=== PATIENT | male | born 1950 | race Caucasian/White ===

== ENCOUNTER 2016-12-03 19:57 | Emergency (ER) | payer OTHER ==
[2016-12-03 20:00] VITALS: O2SAT 100
[2016-12-03] MEDS ORDERED: ONDANSETRON HCL 4 MG/2 ML VIAL ONE (20:05)
[2016-12-03] MEDS ORDERED: MORPHINE SULFATE 8 MG/ML INJ ONE (20:05)
[2016-12-03] MEDS ORDERED: ceFAZolin 2 GM PREMIX 50 ML IV STA (20:08)
[2016-12-03] MEDS ORDERED: DIPHTH/TETANUS/ACEL PERTUSSIS (BOOSTER) 0.5 ML VIAL/PFS IM ONE (20:08)
[2016-12-03] MEDS ORDERED: SODIUM CHLOR 0.9% 1000 ML INJ 1,000 ML IV ONE (20:15)
[2016-12-03 20:23] LABS: AUTOMATED NEUTROPHIL # 15.4 TH/MM3 (1.8-7.7); BASOPHIL # 0.1 TH/MM3 (0-0.2); BASOPHIL % 0.3 % (0.0-2.0); EOSINOPHIL % 0.2 % (0.0-4.0); HEMATOCRIT 47.5 % (39.0-51.0); HEMO FLAGS DIFF FINAL; LYMPH % 4.7 % (9.0-44.0); LYMPHOCYTE # 0.8 TH/MM3 (1.0-4.8); MEAN CELL VOLUME 94.5 FL (80.0-100.0); MEAN CORPUSCULAR HEMOGLOBIN 32.1 PG (27.0-34.0); MONO % 4.8 % (0.0-8.0); PLATELET COUNT 170 TH/MM3 (150-450); RED BLOOD COUNT 5.03 MIL/MM3 (4.50-5.90); RED CELL DISTRIBUTION WIDTH 14.9 % (11.6-17.2); WHITE BLOOD COUNT 17.1 TH/MM3 (4.0-11.0)
--- NOTE | 2016-12-03 20:23 | PD ---
HPI Chief Complaint: Trauma (Alert) Time Seen by Provider: 19:59 Travel History International Travel<30 days: No Contact w/Intl Traveler<30days: No Traveled to known affect area: No History of Present Illness HPI The patient is 66 year old male who presents to the [facility] emergency department with a history of being brought in as a trauma alert after he arrived by private vehicle at [facility] emergency department after a fall off of a roof. Initial evaluation revealed criteria for a trauma alert, therefore the patient was backboarded, C-spine immobilization provided and the patient was transported to this facility. The patient was called as a trauma alert prior to arrival and Dr. Valle, the trauma surgeon was notified at 1910 by me. He was available in the trauma bay when the patient arrived. The patient reports that he was up on the roof cleaning it. He reports that she has a double roof on his barn, 28 feet off the ground. He reports that he slipped and fell off the 28 foot roof and then attempted to catch himself when he was on the 11th foot roof with his left hand. He continued to slide and fell 11 feet to the ground. He denies hitting his head or losing consciousness. He reports that he landed on his buttock area. He reports having some low back pain. He reports having right third digit pain with notable deformity, right foot pain with notable ecchymosis over the dorsum of the foot, and left great toe pain. Otherwise, the patient denies having any chest pain, chest pressure, shortness of breath, abdominal pain, headache, neck pain, or loss of consciousness. Tetanus is unsure when his tetanus was last updated. [facility] Past Medical History Narrative Medical The patient's past medical history is reportedly significant for hypertension, history of skin cancer. Past Surgical History Narrative Surgical The patient has a history of skin cancer resection. Social History Alcohol Use: Yes (occasional) Tobacco Use: No Substance Use: No Allergies-Medications (Allergen,Severity, Reaction): Coded Allergies: No Known Allergies (Unverified , 12/03/16) Comments He denies any allergies to medicines. Narrative Medication He reports that he takes lisinopril 10 mg by mouth daily. Review of Systems Except as stated in HPI: all other systems reviewed are Neg General / Constitutional: No: Fever Eyes: No: Visual changes HENT: No: Headaches, Neck Stiffness, Neck Pain Cardiovascular: No: Chest Pain or Discomfort Respiratory: No: Shortness of Breath Gastrointestinal: No: Nausea, Vomiting, Diarrhea, Abdominal Pain Genitourinary: No: Dysuria, Flank Pain Musculoskeletal: Positive: Myalgias, Arthralgias, Limited ROM, Edema, Pain Skin: No Rash Neurologic: No: Weakness, Focal Abnormalities, Change in Mentation, Sensory Disturbance Psychiatric: No: Depression Endocrine: No: Polydipsia Hematologic/Lymphatic: No: Easy Bruising Physical Exam Narrative General: The patient is a well-developed well-nourished male in no acute distress. The patient is brought in on a back board in full c-spine immobilization by emergency services. Head and Neck exam: Head is normocephalic atraumatic. No facial bone tenderness or increased facial bone mobility noted on palpation. Eyes: EOMI, pupils are equal round and reactive to light. Nose: Midline septum with pink mucous membranes Mouth: Dentition unremarkable. Moist mucus membranes. Posterior oropharynx is not erythematous. No tonsillar hypertrophy. Uvula midline. Airway patent. Neck: The patient is immobilized in a cervical collar. No tracheal deviation. The trachea appears midline. The patient has no obvious distracting injuries. The trauma surgeon remove the patient's cervical collar and examined his posterior neck. The patient had no spinous process tenderness to palpation, no step-off or crepitus. The patient on active range of motion had no pain with flexion and extension or rotation of his head. The patient's cervical collar was removed and his cervical spine was cleared by the trauma surgeon. Cardiovascular: Regular rate and rhythm without murmurs, gallops, or rubs. Lungs: Clear to auscultation bilaterally. No wheezes, rhonchi, or rales. No chest wall tenderness to palpation. No erythema or ecchymosis noted. No crepitus , step off, or flail segment noted. Abdomen: Soft, without tenderness to palpation in all 4 quadrants of the abdomen. No guarding, rebound, or rigidity. Negative Brandon sign. Extremities: No clubbing, cyanosis, or edema. 2+ pulses in all 4 extremities. No extremity tenderness or deformity noted on palpation or passive/ active range of motion, except in the areas of interest, the right third digit, the patient has deformity at the PIP joint with flexion noted. The patient reports that he is unable to extend his finger there is ecchymosis developing over the joint. There is tenderness on palpation. The patient has intact sensation over the digit. The patient also has tenderness on palpation along the dorsum of the right foot with ecchymosis and abrasion noted. There is no crepitus or step-off. The patient has an abrasion over the medial aspect of the right ankle with some swelling noted. There is no deformity, crepitus, or step-off. The patient is able to move his toes and has intact sensation over his legs and full range of motion. The patient additionally reports having tenderness of the left great toe. There is no obvious deformity, step-off or crepitus. Back: No spinous process tenderness to palpation. No costovertebral angle tenderness to palpation. No erythema or ecchymosis. Neurologic Exam: Cranial nerves 2-12 were intact on exam. Strength is 5/5 in all 4 extremities. No sensory deficits noted. Skin Exam: The patient has an 8 cm medial laceration to the left thigh without any active bleeding. This is through the skin and down into the subcutaneous tissue. Some fatty tissue is being extruded from the wound. A bandage was applied prior to arrival. Data Data Last Documented VS Vital Signs Date Time Temp Pulse Resp B/P Pulse Ox O2 Delivery O2 Flow Rate FiO2 12/03/16 21:10 84 16 142/78 98 Room Air 12/03/16 20:00 21 Orders I-Stat Profile (12/03/16 19:59) I-Stat Creatinine (12/03/16 19:59) Complete Blood Count With Diff (12/03/16 19:59) Prothrombin Time / Inr (Pt) (12/03/16 19:59) Act Partial Throm Time (Ptt) (12/03/16 19:59) Type And Screen (12/03/16 19:59) Fibrinogen (12/03/16 19:59) Urinalysis - C+S If Indicated (12/03/16 19:59) Chest, Single Ap (12/03/16 19:59) Pelvis, Ap Only (Routine) (12/03/16 19:59) Ct Abd/Pel W Iv Contrast(Rout) (12/03/16 19:59) Ct Thorax/ Chest W Iv Contrast (12/03/16 19:59) Ct Thor Spine W/O Contrast (12/03/16 19:59) Ct Lumb Spine W/O Contrast (12/03/16 19:59) Iv Access Insert/Monitor (12/03/16 19:59) Ecg Monitoring (12/03/16 19:59) Oximetry (12/03/16 19:59) Oxygen Administration (12/03/16 19:59) Morphine Inj (Morphine Inj) (12/03/16 20:05) Ondansetron Inj (Zofran Inj) (12/03/16 20:05) Cefazolin 2 Gm Premix (Ancef 2 Gm Premix (12/03/16 20:08) Hbqj-Xqp-Nabvcj (Booster) Inj (Boostrix (12/03/16 20:08) Sodium Chlor 0.9% 1000 Ml Inj (Ns 1000 M (12/03/16 20:15) Finger (Tce2zgm) (12/03/16 20:12) Foot, Complete (Mmy1yxz) (12/03/16 20:12) Toe (Min 2vws) (12/03/16 20:12) Hand, Limited (2vws) (12/03/16 ) Ankle, Limited (Ap&Lat) (12/03/16 ) Iohexol 350 Inj (Omnipaque 350 Inj) (12/03/16 20:26) Lidocai-Epi 1%-1:100,000 Inj (Xylocaine- (12/03/16 21:00) Wound Care (12/03/16 20:46) Lidocaine 2% Inj (Xylocaine 2% Inj) (12/03/16 21:15) Ice/Cold Pack (12/03/16 22:05) Splint Or Brace Apply/Monitor (12/03/16 22:05) Labs Laboratory Tests Test 12/03/16 19:58 White Blood Count 17.1 TH/MM3 Red Blood Count 5.03 MIL/MM3 Hemoglobin 16.2 GM/DL Bedside Hemoglobin 16.7 G/DL Hematocrit 47.5 % Bedside Hematocrit 49.0 % Mean Corpuscular Volume 94.5 FL Mean Corpuscular Hemoglobin 32.1 PG Mean Corpuscular Hemoglobin 34.0 % Concent Red Cell Distribution Width 14.9 % Platelet Count 170 TH/MM3 Mean Platelet Volume 10.5 FL Neutrophils (%) (Auto) 90.0 % Lymphocytes (%) (Auto) 4.7 % Monocytes (%) (Auto) 4.8 % Eosinophils (%) (Auto) 0.2 % Basophils (%) (Auto) 0.3 % Neutrophils # (Auto) 15.4 TH/MM3 Lymphocytes # (Auto) 0.8 TH/MM3 Monocytes # (Auto) 0.8 TH/MM3 Eosinophils # (Auto) 0.0 TH/MM3 Basophils # (Auto) 0.1 TH/MM3 CBC Comment DIFF FINAL Differential Comment Prothrombin Time 10.9 SEC Prothromb Time International 1.0 RATIO Ratio Activated Partial 21.4 SEC Thromboplast Time Fibrinogen 233 mg/dL Bedside Sodium 141 MMOL/L Bedside Potassium 4.3 MMOL/L Bedside Chloride 106 MMOL/L Bedside Blood Urea Nitrogen 24 MG/DL Bedside Creatinine 1.1 MG/DL Bedside Glucose 117 MG/DL Blood Type A POSITIVE Antibody Screen NEGATIVE MDM Medical Screen Exam Complete: Yes Emergency Medical Condition: Yes Medical Record Reviewed: Yes Differential Diagnosis Intrathoracic trauma, versus intra-abdominal trauma, versus pelvic injury, versus C-spine injury, versus L-spine injury, versus extremity fractures, versus dislocation, versus contusion and abrasion. Narrative Course During the course of the patients emergency department visit, the patients history, examination, and differential diagnosis were reviewed with the patient. The patient had IV access obtained and blood work sent for analysis. The patient had large-bore IVs placed in bilateral upper extremities. IV fluids were administered prior to arrival. The patient's blood pressure on arrival is in the 170s systolic and the patient has no signs of bleeding, therefore the patient's further fluid resuscitation IV was held. A chest x-ray , pelvic x-ray, right ankle, right foot, left great toe, right hand, right third digit x-ray were ordered. An i-STAT with creatinine was ordered. Dr. Valle the trauma surgeon was available at the patient's side to assist with care. The patient was provided Ancef 2 g IV, tetanus was updated. The patients laboratory studies were reviewed and remarkable for a white count of 17.1, hemoglobin 16.2, platelets 170 with 90.0 neutrophils lymphocytes 4.7, i -STAT shows a sodium of 141, potassium 4.3, chloride 106, BUN 24, creatinine 1.1 , glucose 117. PT PTT are unremarkable, fibrinogen 233. Radiology studies were reviewed and remarkable for a CT scan of the thorax, abdomen and pelvis showed no acute abnormality. CT scan of the T-spine showed no acute abnormality. CT scan of the lumbar spine shows no fracture or subluxation of the lumbar spine, degenerative changes at L4-L5 and L5-S1 mainly appearing chronic although there is an age indeterminate small central to left paracentral disc protrusion at L4-L5 with associated mild spinal left lateral recess narrowing. There is mild bilateral foraminal stenosis at L4-L5 and moderate to severe bilateral foraminal stenosis at L5-S1. Chest x-ray and pelvic x-ray were unremarkable, right foot x-ray, left great toe x-ray, right ankle x-ray showed no acute bony abnormality. Right hand x-ray revealed a dislocation of the PIP joint. This was relocated and post reduction film reveals interim reduction of the previously seen dislocation, potential tiny dorsal medial fracture fragment 1 mm noted seen dorsal medial to the joint. No large fracture noted. The patient was placed in a finger splint. The patient was instructed regarding the importance of following up with a hand surgeon for reexamination. The patient's findings were discussed with the trauma surgeon. He felt that the patient could be discharged home. A physician billing and accounting staff assistant was consultative regarding wound repair of the left medial thigh laceration. This was irrigated and repaired. A separate dictation will be done by this PA. The patient is resting comfortably and feels better, is alert and in no distress. The patients results and examination findings were discussed with the patient. The repeat examination is unremarkable and benign. The history, exam, diagnostic testing, and current condition do not suggest any significant pathology to warrant further testing, continued ED treatment, admission, or surgical evaluation at this point. The vital signs have been stable. The patient does not have uncontrollable pain, intractable vomiting, or other significant symptoms. The patient's condition is stable and appropriate for discharge. The patient will pursue further outpatient evaluation with a primary care physician or other designated or consulting physician as indicated in the discharge instructions. The patient expressed understanding and was agreeable with this plan. Procedures Procedure Narrative Close reduction right third PIP joint dislocation: While preparing the finger by cleaning it, I explained to the patient that I would be doing a digital block for his comfort for the procedure. The patient reports that he is fearful of needles and prefers that I do the procedure without local anesthesia. The patient's right hand was stabilized on a bedside table and I gently pulled the distal third digit while stabilizing the proximal aspect of the digit. The patient's finger relocated to the anatomic position. A postreduction right third digit x-ray has been ordered. The patient will be placed in a finger splint. Trauma Alert - Level One Trauma Alert Level One: Full trauma team activate, Patient evaluated, Trauma surgeon summoned Time Surgeon Summoned: 19:10 (Surgeon asked to come in) Diagnosis Diagnosis: Primary Impression: Fall Qualified Code: W19.XXXA - Fall, initial encounter Additional Impressions: Closed traumatic PIP dislocation Qualified Code: S63.289A - Closed traumatic PIP dislocation, initial encounter Laceration of left leg Qualified Code: S81.812A - Laceration of left leg, initial encounter Referrals: Hand Surgeon 3 days Primary Care Physician 2 days Patient Instructions: Contusion in Adults (ED), Finger Dislocation (ED), General Instructions, Laceration (ED) Med/Other Pt SpecificInfo: Prescription(s) given Scripts Cyclobenzaprine (Flexeril)5 Mg Tab5 Mg PO TID PRN (SPASM) #15 TAB Ref 0 Prov:Pastora Junior MD 12/03/16 Hydrocodone-Acetaminophen (Lortab)5-325 Mg Tab1 Tab PO Q6H PRN (PAIN) #12 TAB Ref 0 Prov:Pastora Junior MD 12/03/16 Disposition: 01 DISCHARGE HOME Condition: Stable Pastora Junior MD Dec 03, 2016 20:23
[2016-12-03] MEDS ORDERED: IOHEXOL 350 MG/ML 10 ML VIAL (for RAD DIAG) IV ONE (20:26)
--- NOTE | 2016-12-03 20:27 | RADRPT ---
EXAM DATE/TIME: 12/03/2016 19:53 [facility] COMPARISON: No previous studies available for comparison. INDICATIONS : Trauma alert. Fall. MEDICAL HISTORY : None. SURGICAL HISTORY : None. ENCOUNTER: Initial ACUITY: 1 day PAIN SCORE: Non-responsive. LOCATION: Bilateral chest FINDINGS: A single view of the chest demonstrates the lungs to be symmetrically aerated without evidence of mas s, infiltrate or effusion. The cardiomediastinal contours are unremarkable. Osseous structures are intact. CONCLUSION: No evidence of acute cardiopulmonary disease. Bob Deleon MD on December 03, 2016 at 20:25 Board Certified Radiologist. This report was verified electronically.
[2016-12-03 20:28] LABS: I-STAT POTASSIUM 4.3 MMOL/L (3.5-4.9)
--- NOTE | 2016-12-03 20:28 | RADRPT ---
EXAM DATE/TIME: 12/03/2016 19:53 [facility] COMPARISON: No previous studies available for comparison. INDICATIONS : Trauma alert. Fall. Medial right ankle abrasion. MEDICAL HISTORY : None. SURGICAL HISTORY : None. ENCOUNTER: Initial ACUITY: 1 day PAIN SCORE: Non-responsive. LOCATION: Right ankle FINDINGS: Two view examination was performed of the right ankle. The bony structures are in normal alignment. No evidence of fracture, dislocation, or soft tissue swelling. No radiopaque foreign bodies are see n. Bony mineralization is normal. CONCLUSION: No ankle fracture. Bob Deleon MD on December 03, 2016 at 20:27 Board Certified Radiologist. This report was verified electronically.
--- NOTE | 2016-12-03 20:28 | RADRPT ---
EXAM DATE/TIME: 12/03/2016 19:53 [facility] COMPARISON: No previous studies available for comparison. INDICATIONS : Trauma alert. Fall. MEDICAL HISTORY : None. SURGICAL HISTORY : None. ENCOUNTER: Initial ACUITY: 1 day PAIN SCORE: Non-responsive. LOCATION: Bilateral pelvis FINDINGS: A single frontal view of the pelvis demonstrates no evidence of fracture. The bony pelvic ring is in tact. Bony mineralization is normal. The soft tissues are intact. CONCLUSION: Intact pelvis. Bob Deleon MD on December 03, 2016 at 20:26 Board Certified Radiologist. This report was verified electronically.
[2016-12-03 20:34] LABS: APTT (PATIENT) 21.4 SEC (24.3-30.1); PROTHROMBIN TIME - PATIENT 10.9 SEC (9.8-11.6)
--- NOTE | 2016-12-03 20:37 | RADRPT ---
EXAM DATE/TIME: 12/03/2016 19:53 [facility] COMPARISON: No previous studies available for comparison. INDICATIONS : Trauma alert. Fall. Right hand pain and unable to extend third digit. MEDICAL HISTORY : None. SURGICAL HISTORY : None. ENCOUNTER: Initial ACUITY: 1 day PAIN SCORE: Non-responsive. LOCATION: Right hand FINDINGS: Volar dislocation with hyperflexion seen at the proximal interphalangeal joint of the long finger. No definite fracture. CONCLUSION: Volar dislocated long finger proximal interphalangeal joint. Bob Deleon MD on December 03, 2016 at 20:35 Board Certified Radiologist. This report was verified electronically.
--- NOTE | 2016-12-03 20:38 | RADRPT ---
EXAM DATE/TIME: 12/03/2016 20:16 [facility] COMPARISON: No previous studies available for comparison. INDICATIONS : Trauma. IV CONTRAST: 98 cc Omnipaque 350 (iohexol) IV ; Cumulative dose for multiple exams. ORAL CONTRAST: No oral contrast ingested. RADIATION DOSE: 15.57 CTDIvol (mGy) MEDICAL HISTORY : Non-responsive. SURGICAL HISTORY : Non-responsive. ENCOUNTER: Initial ACUITY: 1 day PAIN SCALE: Non-responsive LOCATION: Bilateral lower quadrant TECHNIQUE: Volumetric scanning of the abdomen and pelvis was performed. Using automated exposure control and ad justment of the mA and/or kV according to patient size, radiation dose was kept as low as reasonably achievable to obtain optimal diagnostic quality images. FINDINGS: LOWER LUNGS: The visualized lower lungs are clear. LIVER: Homogeneous density without lesion. There is no dilation of the biliary tree. No calcified gallston es. SPLEEN: Normal size without lesion. PANCREAS: Within normal limits. KIDNEYS: Kidneys are intact. There is a 3.8 cm upper pole cyst on the right. ADRENAL GLANDS: Within normal limits. VASCULAR: There is no aortic aneurysm. BOWEL/MESENTERY: The stomach, small bowel, and colon demonstrate no acute abnormality. There is no free intraperitone al air or fluid. ABDOMINAL WALL: Within normal limits. RETROPERITONEUM: There is no lymphadenopathy. BLADDER: No wall thickening or mass. REPRODUCTIVE: Within normal limits. INGUINAL: There is no lymphadenopathy or hernia. MUSCULOSKELETAL: Within normal limits for patient age. CONCLUSION: No visceral organ injury or other acute abnormality. Incidentally seen benign-appearing right renal c yst. Bob Deleon MD on December 03, 2016 at 20:37 Board Certified Radiologist. This report was verified electronically.
--- NOTE | 2016-12-03 20:40 | RADRPT ---
EXAM DATE/TIME: 12/03/2016 20:16 [facility] COMPARISON: No previous studies available for comparison. INDICATIONS : Trauma. IV CONTRAST: 98 cc Omnipaque 350 (iohexol) IV ; Cumulative dose for multiple exams. RADIATION DOSE: 15.57 CTDIvol (mGy) MEDICAL HISTORY : Non-responsive. SURGICAL HISTORY : Non-responsive. ENCOUNTER: Initial ACUITY: 1 day PAIN SCALE: Non-responsive LOCATION: chest TECHNIQUE: Volumetric scanning of the chest was performed. Using automated exposure control and adjustment of t he mA and/or kV according to patient size, radiation dose was kept as low as reasonably achievable to obtain optimal diagnostic quality images. FINDINGS: LUNGS: There is no consolidation or pneumothorax. No concerning pulmonary nodule is visualized. PLEURA: There is no pleural thickening or pleural effusion. MEDIASTINUM: The heart and great vessels demonstrate no acute abnormality. There is no mediastinal or hilar lymph adenopathy. AXILLAE: Within normal limits. No lymphadenopathy. SKELETAL: Within normal limits for patient age. MISCELLANEOUS: The visualized upper abdominal organs demonstrate no acute abnormality. CONCLUSION: Negative. No acute thoracic injury demonstrated. Bob Deleon MD on December 03, 2016 at 20:38 Board Certified Radiologist. This report was verified electronically.
--- NOTE | 2016-12-03 20:46 | RADRPT ---
EXAM DATE/TIME: 12/03/2016 20:16 [facility] COMPARISON: No previous studies available for comparison. INDICATIONS : Trauma. RADIATION DOSE: 15.57 CTDIvol (mGy) ; Reconstructed from previous dataset MEDICAL HISTORY : Non-responsive. SURGICAL HISTORY : Non-responsive. ENCOUNTER: Initial ACUITY: 1 day PAIN SCALE: Non-responsive LOCATION: Paraspinal TECHNIQUE: Volumetric scanning of the thoracic spine was performed. Multiplanar reconstructions in the sagittal , coronal and oblique axial planes were performed. Using automated exposure control and adjustment o f the mA and/or kV according to patient size, radiation dose was kept as low as reasonably achievable to obtain optimal diagnostic quality images. FINDINGS: There is mild dextroconvex curvature. No subluxation. Vertebral bodies have normal height. No cortica l break or trabecular disruption seen. Chronic degenerative disc disease seen in the lower cervical s pine at C6/C7. T1-T2: Normal. T2-T3: The thecal sac has a normal diameter. No evidence of disc bulge or protrusion. T3-T4: The thecal sac has a normal diameter. No evidence of disc bulge or protrusion. T4-T5: The thecal sac has a normal diameter. No evidence of disc bulge or protrusion. T5-T6: The thecal sac has a normal diameter. No evidence of disc bulge or protrusion. T6-T7: The thecal sac has a normal diameter. No evidence of disc bulge or protrusion. T7-T8: The thecal sac has a normal diameter. No evidence of disc bulge or protrusion. T8-T9: The thecal sac has a normal diameter. No evidence of disc bulge or protrusion. T9-T10: The thecal sac has a normal diameter. No evidence of disc bulge or protrusion. T10-T11: The thecal sac has a normal diameter. No evidence of disc bulge or protrusion. T11-T12: The thecal sac has a normal diameter. No evidence of disc bulge or protrusion. T12-L1: The thecal sac has a normal diameter. No evidence of disc bulge or protrusion. CONCLUSION: Intact thoracic spine. Bob Deleon MD on December 03, 2016 at 20:44 Board Certified Radiologist. This report was verified electronically.
--- NOTE | 2016-12-03 20:51 | RADRPT ---
EXAM DATE/TIME: 12/03/2016 20:16 [facility] COMPARISON: No previous studies available for comparison. INDICATIONS : Trauma. RADIATION DOSE: 15.57 CTDIvol (mGy) ; Reconstructed from previous dataset MEDICAL HISTORY : Non-responsive. SURGICAL HISTORY : Non-responsive. ENCOUNTER: Initial ACUITY: 1 day PAIN SCALE: Non-responsive LOCATION: Paraspinal TECHNIQUE: Volumetric scanning of the lumbar spine was performed. Multiplanar reconstructions in the sagittal, coronal and oblique axial planes were performed. Using automated exposure control and adjustment of the mA and/or kV according to patient size, radiation dose was kept as low as reasonably achievable t o obtain optimal diagnostic quality images. FINDINGS: VERTEBRAE: Normal vertebral body height. ALIGNMENT: No evidence of subluxation. T12-L1: The thecal sac has a normal diameter. No evidence of disc bulge or protrusion. The neural foramina are patent bilaterally. L1-L2: The thecal sac has a normal diameter. No evidence of disc bulge or protrusion. The neural foramina are patent bilaterally. L2-L3: The thecal sac has a normal diameter. No evidence of disc bulge or protrusion. The neural foramina are patent bilaterally. L3-L4: The thecal sac has a normal diameter. No evidence of disc bulge or protrusion. The neural foramina are patent bilaterally. L4-L5: The disc has mild loss of height and there is a small, broad posterior disc protrusion. A superimpose d small central to left per sagittal disc protrusion is seen, age-indeterminate, contributes to mild spinal/left lateral recess narrowing. Mild bilateral facet osteoarthritis. There is mild foraminal en croachment, mainly on the right. L5-S1: The disc has moderate to severe loss of height and with chronic endplate sclerosis. There is a small, broad posterior disc osteophyte complex and moderate, bilateral facet osteoarthritis. There is moder ate to severe bilateral foraminal stenosis. CONCLUSION: 1. No fracture or subluxation of the lumbar spine. 2. Degenerative changes at L4/L5 and L5/S1, mainly appearing chronic although there is an age-indeter minate small central to left per central disc protrusion at L4/L5 with associated mild spinal/left la teral recess narrowing. There is mild bilateral foraminal stenosis at L4/L5 and moderate to severe bi lateral foraminal stenosis at L5/S1. Bob Deleon MD on December 03, 2016 at 20:46 Board Certified Radiologist. This report was verified electronically.
[2016-12-03] MEDS ORDERED: LIDOCAINE 1%/EPINEPHrine 1:100,000 SOLN 20 ML VIAL INFIL ONE (21:00)
[2016-12-03 21:10] VITALS: BP 142/78; PULSE 84; RESP 16; O2SAT 98
[2016-12-03] MEDS ORDERED: LIDOCAINE HCL 2% 20 ML VIAL INFIL ONE (21:15)
--- NOTE | 2016-12-03 21:34 | PD.CONS ---
History of Present Illness Consult Requested By Primary Care Physician Unknown Diagnoses: History of Present Illness 66 yo man brought in as trauma alert from outside facility after falling from a roof approximately 11 feet to the ground from an additional roof approximately 10 feet higher. Patient arrived A&O, NAD with a 7 cm laceration to his left inner thigh and an obvious dislocation to his third PIP digit. Patient denies striking his head, denies LOC and has total recall of the event. Review of Systems Constitutional: DENIES: Diaphoretic episodes, Fatigue, Fever, Weight gain, Weight loss, Chills, Dizziness, Change in appetite, Night Sweats Endocrine: DENIES: Heat/cold intolerance, Polydipsia, Polyuria, Polyphagia Eyes: DENIES: Blurred vision, Diplopia, Eye inflammation, Eye pain, Vision loss , Photosensitivity, Double Vision Ears, nose, mouth, throat: DENIES: Tinnitus, Hearing loss, Vertigo, Nasal discharge, Oral lesions, Throat pain, Hoarseness, Ear Pain, Running Nose, Epistaxis, Sinus Pain, Toothache, Odynophagia Respiratory: DENIES: Apneas, Cough, Snoring, Wheezing, Hemoptysis, Sputum production, Shortness of breath Cardiovascular: DENIES: Chest pain, Palpitations, Syncope, Dyspnea on Exertion , PND, Lower Extremity Edema, Orthopnea, Claudication Gastrointestinal: DENIES: Abdominal pain, Black stools, Bloody stools, Constipation, Diarrhea, Nausea, Vomiting, Difficulty Swallowing, Anorexia Musculoskeletal: COMPLAINS OF: Joint pain (right PIP) Integumentary: DENIES: Abnormal pigmentation, Nail changes, Pruritus, Rash Hematologic/lymphatic: DENIES: Bruising, Lymphadenopathy Immunologic/allergic: DENIES: Eczema, Urticaria Neurologic: DENIES: Abnormal gait, Headache, Localized weakness, Paresthesias, Seizures, Speech Problems, Tremor, Poor Balance Psychiatric: DENIES: Anxiety, Confusion, Mood changes, Depression, Hallucinations, Agitation, Suicidal Ideation, Homicidal Ideation, Delusions Past Family Social History Allergies: Coded Allergies: No Known Allergies (Unverified , 12/03/16) Past Medical History HTN Past Surgical History Multiple skin CA resection Reported Medications lisinopril 10 daily Family History reviewed and not relevant Social History occasional ETOH, denies tobacco and drugs Physical Exam Vital Signs Vital Signs Date Time Temp Pulse Resp B/P Pulse Ox O2 Delivery O2 Flow Rate FiO2 12/03/16 21:10 84 16 142/78 98 Room Air 12/03/16 21:10 98 Room Air 12/03/16 21:10 16 12/03/16 20:00 100 21 Physical Exam GENERAL: This is a well-nourished, well-developed patient, in no apparent distress. SKIN: No rashes, ecchymoses or lesions. Cool and dry. HEAD: Atraumatic. Normocephalic. No temporal or scalp tenderness. EYES: Pupils equal round and reactive. Extraocular motions intact. No scleral icterus. No injection or drainage. ENT: Nose without bleeding, purulent drainage or septal hematoma. Throat without erythema, tonsillar hypertrophy or exudate. Uvula midline. Airway patent. NECK: Trachea midline. No JVD or lymphadenopathy. Supple, nontender, no meningeal signs. CARDIOVASCULAR: Regular rate and rhythm without murmurs, gallops, or rubs. RESPIRATORY: Clear to auscultation. Breath sounds equal bilaterally. No wheezes , rales, or rhonchi. GASTROINTESTINAL: Abdomen soft, non-tender, nondistended. No hepato-splenomegaly , or palpable masses. No guarding. MUSCULOSKELETAL: Extremities without clubbing, cyanosis, or edema. No effusion, or edema noted. Right third PIP dislocation, left ankle tenderness. NEUROLOGICAL: Awake and alert. Cranial nerves II through XII intact. Motor and sensory grossly within normal limits. Five out of 5 muscle strength in all muscle groups. Normal speech. Laboratory Laboratory Tests Test 12/03/16 19:58 White Blood Count 17.1 Red Blood Count 5.03 Hemoglobin 16.2 Bedside Hemoglobin 16.7 Hematocrit 47.5 Bedside Hematocrit 49.0 Mean Corpuscular Volume 94.5 Mean Corpuscular Hemoglobin 32.1 Mean Corpuscular Hemoglobin 34.0 Concent Red Cell Distribution Width 14.9 Platelet Count 170 Mean Platelet Volume 10.5 Neutrophils (%) (Auto) 90.0 Lymphocytes (%) (Auto) 4.7 Monocytes (%) (Auto) 4.8 Eosinophils (%) (Auto) 0.2 Basophils (%) (Auto) 0.3 Neutrophils # (Auto) 15.4 Lymphocytes # (Auto) 0.8 Monocytes # (Auto) 0.8 Eosinophils # (Auto) 0.0 Basophils # (Auto) 0.1 CBC Comment DIFF FINAL Differential Comment Prothrombin Time 10.9 Prothromb Time International 1.0 Ratio Activated Partial 21.4 Thromboplast Time Fibrinogen 233 Bedside Sodium 141 Bedside Potassium 4.3 Bedside Chloride 106 Bedside Blood Urea Nitrogen 24 Bedside Creatinine 1.1 Bedside Glucose 117 Blood Type A POSITIVE Antibody Screen NEGATIVE Result Diagram: 12/03/161957 Assessment and Plan Assessment and Plan Reduce finger dislocation and close left thigh wound (abx given) Discharge home Discharge Planning home Raji Valle MD Dec 03, 2016 21:34
--- NOTE | 2016-12-03 21:45 | RADRPT ---
EXAM DATE/TIME: 12/03/2016 21:35 [facility] COMPARISON: No previous studies available for comparison. INDICATIONS : Post reduction. MEDICAL HISTORY : None. SURGICAL HISTORY : None. ENCOUNTER: Initial ACUITY: 1 day PAIN SCORE: 10 LOCATION: Right finger, third FINDINGS: The previously seen dislocation of the proximal interphalangeal joint of the long finger has been red uced into normal alignment. 1 mm age indeterminant ossific fragment seen dorsal/medial to the joint. No large fracture. CONCLUSION: Interim reduction of the previously seen dislocation. Potential tiny dorsal/medial fracture fragment. Bob Deleon MD on December 03, 2016 at 21:43 Board Certified Radiologist. This report was verified electronically.
--- NOTE | 2016-12-03 21:48 | RADRPT ---
EXAM DATE/TIME: 12/03/2016 21:31 [facility] COMPARISON: No previous studies available for comparison. INDICATIONS : Trauma alert. Fall. MEDICAL HISTORY : None. SURGICAL HISTORY : None. ENCOUNTER: Initial ACUITY: 1 day PAIN SCORE: 3/10 LOCATION: Right foot FINDINGS: Three view examination of the right foot demonstrates no soft tissue swelling, dislocation, or fractu re. The tarsal bones appear intact. The interphalangeal and metatarsophalangeal joints are intact. The calcaneus is intact. Bony mineralization is normal. Incidentally seen bipartite with tibial sesamoid. CONCLUSION: No fracture or subluxation of the right foot. Bob Deleon MD on December 03, 2016 at 21:46 Board Certified Radiologist. This report was verified electronically.
--- NOTE | 2016-12-03 21:49 | RADRPT ---
EXAM DATE/TIME: 12/03/2016 21:27 [facility] COMPARISON: No previous studies available for comparison. INDICATIONS : Trauma alert. Fall. MEDICAL HISTORY : None. SURGICAL HISTORY : None. ENCOUNTER: Initial ACUITY: 1 day PAIN SCORE: 2/10 LOCATION: Left great toe FINDINGS: Examination of the first digit of the left foot demonstrates no evidence of fracture or dislocation. No radiopaque foreign bodies are seen. The soft tissues are intact. CONCLUSION: Bones of the left great toe are intact. Bob Deleon MD on December 03, 2016 at 21:47 Board Certified Radiologist. This report was verified electronically.
[2016-12-03] MEDS ORDERED: CYCL5TAB PO (22:24)
[2016-12-03] MEDS ORDERED: HYDR-3533 PO (22:24)
--- NOTE | 2016-12-03 22:27 | PD ---
Physical Exam Date Seen by Provider: Dec 03, 2016 Time Seen by Provider: 22:23 Narrative Patient is a male, alert patient treatment Dr. Junior who asked me to perform laceration repair to the left thigh. Please refer to her note for full history , physical and disposition. GENERAL: Well-developed and well-nourished adult male in no acute distress. SKIN: Warm and dry. Good turgor without tenting. HEAD: Normocephalic and atraumatic. CARDIOVASCULAR: Regular rate and rhythm without murmurs, rubs, clicks or gallops. Dorsalis pedis and posterior tibial pulses 2+ bilaterally. Capillary refill less than 2 seconds distal to all toes of left foot. No pedal edema. RESPIRATORY: No distress or use of accessory muscles. Speaks in full sentences , no stridor, tripoding or drooling. MUSCULOSKELETAL: Left thigh a 6 cm laceration proximal medial aspect. Fat visible, no contaminants, muscle, vessels or bone visible. Hemostasis achieved prior to my exam. Patient freely moving all four extremities spontaneously. Extremities without clubbing, cyanosis, or edema. No obvious deformities. NEUROLOGIC: CN II-XII grossly intact. Awake and alert. Motor grossly within normal limits. Normal speech. PSYCHIATRIC: Appropriate mood and affect; insight and judgment normal. Data Data Last Documented VS Vital Signs Date Time Temp Pulse Resp B/P Pulse Ox O2 Delivery O2 Flow Rate FiO2 12/03/16 21:10 84 16 142/78 98 Room Air 12/03/16 20:00 21 Orders I-Stat Profile (12/03/16 19:59) I-Stat Creatinine (12/03/16 19:59) Complete Blood Count With Diff (12/03/16 19:59) Prothrombin Time / Inr (Pt) (12/03/16 19:59) Act Partial Throm Time (Ptt) (12/03/16 19:59) Type And Screen (12/03/16 19:59) Fibrinogen (12/03/16 19:59) Urinalysis - C+S If Indicated (12/03/16 19:59) Chest, Single Ap (12/03/16 19:59) Pelvis, Ap Only (Routine) (12/03/16 19:59) Ct Abd/Pel W Iv Contrast(Rout) (12/03/16 19:59) Ct Thorax/ Chest W Iv Contrast (12/03/16 19:59) Ct Thor Spine W/O Contrast (12/03/16 19:59) Ct Lumb Spine W/O Contrast (12/03/16 19:59) Iv Access Insert/Monitor (12/03/16 19:59) Ecg Monitoring (12/03/16 19:59) Oximetry (12/03/16 19:59) Oxygen Administration (12/03/16 19:59) Morphine Inj (Morphine Inj) (12/03/16 20:05) Ondansetron Inj (Zofran Inj) (12/03/16 20:05) Cefazolin 2 Gm Premix (Ancef 2 Gm Premix (12/03/16 20:08) Gorr-Nmw-Sxwesu (Booster) Inj (Boostrix (12/03/16 20:08) Sodium Chlor 0.9% 1000 Ml Inj (Ns 1000 M (12/03/16 20:15) Finger (Hkp3abr) (12/03/16 20:12) Foot, Complete (Qiu6xjj) (12/03/16 20:12) Toe (Min 2vws) (12/03/16 20:12) Hand, Limited (2vws) (12/03/16 ) Ankle, Limited (Ap&Lat) (12/03/16 ) Iohexol 350 Inj (Omnipaque 350 Inj) (12/03/16 20:26) Lidocai-Epi 1%-1:100,000 Inj (Xylocaine- (12/03/16 21:00) Wound Care (12/03/16 20:46) Lidocaine 2% Inj (Xylocaine 2% Inj) (12/03/16 21:15) Ice/Cold Pack (12/03/16 22:05) Splint Or Brace Apply/Monitor (12/03/16 22:05) Labs Laboratory Tests Test 12/03/16 19:58 White Blood Count 17.1 TH/MM3 Red Blood Count 5.03 MIL/MM3 Hemoglobin 16.2 GM/DL Bedside Hemoglobin 16.7 G/DL Hematocrit 47.5 % Bedside Hematocrit 49.0 % Mean Corpuscular Volume 94.5 FL Mean Corpuscular Hemoglobin 32.1 PG Mean Corpuscular Hemoglobin 34.0 % Concent Red Cell Distribution Width 14.9 % Platelet Count 170 TH/MM3 Mean Platelet Volume 10.5 FL Neutrophils (%) (Auto) 90.0 % Lymphocytes (%) (Auto) 4.7 % Monocytes (%) (Auto) 4.8 % Eosinophils (%) (Auto) 0.2 % Basophils (%) (Auto) 0.3 % Neutrophils # (Auto) 15.4 TH/MM3 Lymphocytes # (Auto) 0.8 TH/MM3 Monocytes # (Auto) 0.8 TH/MM3 Eosinophils # (Auto) 0.0 TH/MM3 Basophils # (Auto) 0.1 TH/MM3 CBC Comment DIFF FINAL Differential Comment Prothrombin Time 10.9 SEC Prothromb Time International 1.0 RATIO Ratio Activated Partial 21.4 SEC Thromboplast Time Fibrinogen 233 mg/dL Bedside Sodium 141 MMOL/L Bedside Potassium 4.3 MMOL/L Bedside Chloride 106 MMOL/L Bedside Blood Urea Nitrogen 24 MG/DL Bedside Creatinine 1.1 MG/DL Bedside Glucose 117 MG/DL Blood Type A POSITIVE Antibody Screen NEGATIVE MDM Medical Record Reviewed: Yes Supervised Visit with BISHOP: Yes Procedures Procedure Narrative LACERATION LOCATION: Proximal medial left thigh LENGTH: 6 cm SHAPE: Linear, curved and irregular towards the inferior aspect NUMBER OF STITCHES/JAGDISH: 10 simple interrupted, 2 horizontal mattress REPAIR: The area of the laceration was prepped with Betadine and sterilely draped. The laceration was infiltrated with 8 cc of 2% lidocaine. The wound was copiously irrigated and explored without evidence of foreign body, tendon injury or neurovascular injury. The wound was closed using 3-0 nylon. This was a single layer repair. A sterile dressing was applied. The patient was advised to keep the dressing clean and dry. Patient tolerated the procedure well. Diagnosis Primary Impression: Fall Qualified Code: W19.XXXA - Fall, initial encounter Additional Impressions: Closed traumatic PIP dislocation Qualified Code: S63.289A - Closed traumatic PIP dislocation, initial encounter Laceration of left leg Qualified Code: S81.812A - Laceration of left leg, initial encounter Condition: Stable Bob Fonseca III Dec 03, 2016 22:27
== END 2016-12-04 00:05 | disposition home or self-care (01) ==
LOC: NEPI 19:57 → EDBD 19:57 → NEPE 12-04 00:05
DX: S63.293A Dislocation of distal interphalangeal joint of left middle finger, initial encounter (principal); S71.112A Laceration without foreign body, left thigh, initial encounter; M54.5 Low back pain; M79.675 Pain in left toe(s); M79.671 Pain in right foot; S90.511A Abrasion, right ankle, initial encounter; S90.31XA Contusion of right foot, initial encounter; I10 Essential (primary) hypertension; Z23 Encounter for immunization; W13.2XXA Fall from, out of or through roof, initial encounter; Z91.81 History of falling; Y93.89 Activity, other specified; Y92.9 Unspecified place or not applicable
CPT/HCPCS: 12002; 26770; 71010; 71260; 72128; 72131; 72170; 73120; 73140; 73600; 73630; 73660; 74177; 82435; 82565; 82947; 84132; 84295; 84520; 85025; 85384; 85610; 85730; 86850; 86900; 86901; 90471; 90715; 96374; 96375; 99285; G0390; J2270; J2405; L0150; Q9967; 99291